=== PATIENT | male | born 1975 | race American Indian/Alaskan Native ===

== ENCOUNTER 2017-06-29 01:53 | Emergency (ER) | payer OTHER ==
[2017-06-29 02:02] VITALS: BMI 21.7
[2017-06-29 02:06] VITALS: TEMP 97.9
[2017-06-29] MEDS ORDERED: TDAP Vaccine 0.5 mL Syr IM ONE (02:07)
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
[2017-06-29 06:37] VITALS: BP 124/68; PULSE 74; RESP 17; O2SAT 97
== END 2017-06-29 06:33 | disposition home or self-care (01) ==
LOC: ED 01:53
DX: S61.210A Laceration without foreign body of right index finger without damage to nail, initial encounter (principal); X99.1XXA Assault by knife, initial encounter; Y92.410 Unspecified street and highway as the place of occurrence of the external cause; F17.210 Nicotine dependence, cigarettes, uncomplicated; Z23 Encounter for immunization

== ENCOUNTER 2017-08-26 02:02 | Emergency (ER) | payer OTHER ==
[2017-08-26 02:03] VITALS: BMI 21.7
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
[2017-08-26 03:05] LABS: BASO # 0.03 K/mm3 (0.0-2.0); BASO % 0.5 % (0.0-3.0); EOS # 0.1 (0.0-0.7); EOS % 0.8 % (1.5-5.0); GRAN # 3.25 (1.4-6.5); GRAN % 53.2 % (50.0-68.0); LYMPH # 2.2 (1.2-3.4); LYMPH % 36.3 % (22.0-35.0); MEAN CELL VOLUME 99.7 fl (80.0-105.0); MEAN CORPUSCULAR HEMOGLOBIN 32.9 pg (25.0-35.0); MEAN PLATELET VOLUME 10.3 fl (7.0-11.0); MONO # 0.6 (0.1-0.6); MONO % 9.2 % (1.0-6.0); RBC 3.95 10^6/uL (3.5-6.1); RED CELL DISTRIBUTION WIDTH 14.5 % (11.5-14.5); WHITE BLOOD COUNT 6.1 10^3/ul (4.5-11.0)
[2017-08-26 03:20] LABS: INR 0.98 (0.93-1.08); PARTIAL THROMBOPLASTIN TIME 31.1 Seconds (25.1-36.5); PROTHROMBIN TIME 11.2 SECONDS (9.4-12.5)
[2017-08-26 03:22] LABS: ALB/GLOB RATIO 1.2 (1.1-1.8); ALT/SGPT 43 U/L (7-56); AST/SGOT 55 U/L (17-59); BLOOD UREA NITROGEN 8 mg/dL (7-21); CALCIUM 9.2 mg/dL (8.4-10.5); GFR AFRICAN-AMERICAN > 60; GFR NON-AFRICAN AMERICAN > 60; LIPASE 130 U/L (23-300)
[2017-08-26 03:27] LABS: TROPONIN I < 0.01 ng/mL
[2017-08-26 03:33] LABS: CK MB% 0.9 % (2.5-3.0); CK-MB 8.2 ng/mL (0.0-3.6)
[2017-08-26 05:16] LABS: URINE BILIRUBIN NEGATIVE (NEGATIVE); URINE BLOOD NEGATIVE (NEGATIVE); URINE GLUCOSE (UA) NEGATIVE (NEGATIVE); URINE LEUKOCYTE ESTERASE NEGATIVE Leu/uL (NEGATIVE); URINE NITRATE NEGATIVE (NEGATIVE); URINE PROTEIN NEGATIVE mg/dL (<30 mg/dL); URINE UROBILINOGEN 0.2 E.U./dL (<1 E.U./dL)
[2017-08-26 05:17] LABS: URINE APPEARANCE CLEAR (CLEAR); URINE COLOR YELLOW (YELLOW)
[2017-08-26 06:36] VITALS: BP 135/83; PULSE 68; RESP 17; TEMP 98.2; O2SAT 98
--- NOTE | 2017-08-26 09:05 | RAD ---
HISTORY: cp COMPARISON: No prior. TECHNIQUE: Chest PA and lateral FINDINGS: LUNGS: No active pulmonary disease. PLEURA: No significant pleural effusion identified. No pneumothorax apparent. CARDIOVASCULAR: Normal. OSSEOUS STRUCTURES: No significant abnormalities. VISUALIZED UPPER ABDOMEN: Normal. OTHER FINDINGS: None. IMPRESSION: No active disease.
--- NOTE | 2017-08-26 16:06 | CARD ---
APPROVED REPORT EKG Measurement Heart [id number] <Conclusion> Normal sinus rhythm Normal ECG
== END 2017-08-26 06:35 | disposition home or self-care (01) ==
LOC: ED 02:02
DX: R10.9 Unspecified abdominal pain (principal); F17.210 Nicotine dependence, cigarettes, uncomplicated
CPT/HCPCS: 71046; 80053; 81003; 82550; 82553; 83615; 83690; 84484; 85025; 85610; 85730; 93005; 96374; 96375; 99285; C9113; J2405

== ENCOUNTER 2017-09-02 04:40 | Emergency (ER) | payer OTHER ==
[2017-09-02 04:41] VITALS: BMI 21.7
[2017-09-02 04:58] VITALS: TEMP 98.9
[2017-09-02] MEDS ORDERED: Albuterol-Ipratrop 3 mg / 0.5 (3 ml) UD IH STA (05:07)
--- NOTE | 2017-09-02 05:17 | ED PDOC ---
Arrival/HPI - General Chief Complaint: Flu-like Symptoms Time Seen by Provider: 09/02/17 04:41 Historian: Patient - History of Present Illness Narrative History of Present Illness (Text): 09/02/17 05:15 Pancho Martin is a 42 year old male, whose past medical history includes asthma , presents to the Emergency department with wheezing,dry cough, rhinorrhea tonight. Patient denies any diarrhea, urinary symptoms, back pain, neck pain, headache, dizziness or any other complaints. Time/Duration: Other (tonight) Symptom Onset: Gradual Symptom Course: Unchanged Activities at Onset: Light Context: Home Past Medical History - Provider Review Nursing Documentation Reviewed: Yes - Tetanus Immunization Tetanus Immunization: Unknown - Pulmonary Hx Asthma: Yes - Psychiatric Hx Depression: No Hx Substance Use: Yes - Surgical History Hx Orthopedic Surgery: Yes (rt hand) - Suicidal Assessment Feels Threatened In Home Enviroment: No Family/Social History - Physician Review Nursing Documentation Reviewed: Yes Family/Social History: Unknown Family HX Smoking Status: Heavy Smoker > 10 Cigarettes Daily Hx Alcohol Use: Yes Frequency of alcohol use: Daily Hx Substance Use: Yes Substance used: Marijuana Allergies/Home Meds Allergies/Adverse Reactions: Allergies Penicillins Allergy (Verified 09/02/17 04:53) ANAPHYLAXIS Home Medications: Home Meds Medication Instructions Recorded Confirmed Albuterol Sulfate [Proventil Hfa] 0.09 mg IH Q6 PRN 09/02/17 09/02/17 Review of Systems - Physician Review All systems were reviewed & negative as marked: Yes - Review of Systems Constitutional: Normal Eyes: Normal ENT: Rhinorrhea, Other (+flu-like symptoms) Respiratory: Wheezing. absent: SOB, Cough Cardiovascular: Normal. absent: Chest Pain, Palpitations Gastrointestinal: Normal. absent: Abdominal Pain, Diarrhea Genitourinary Male: Normal. absent: Dysuria, Frequency, Hematuria, Urinary Output Changes Musculoskeletal: Normal. absent: Back Pain, Neck Pain Skin: Normal. absent: Rash Neurological: Normal. absent: Headache, Dizziness Endocrine: Normal Hemo/Lymphatic: Normal Psychiatric: Normal Physical Exam Vital Signs Reviewed: Yes Vital Signs Temp Pulse Resp BP Pulse Ox 09/02/17 06:30 82 17 127/70 99 09/02/17 04:54 98.9 F 91 H 19 138/89 97 Temperature: Afebrile Blood Pressure: Normal Pulse: Regular Respiratory Rate: Normal Appearance: Positive for: Well-Appearing, Non-Toxic, Comfortable Pain Distress: None Mental Status: Positive for: Alert and Oriented X 3 - Systems Exam Head: Present: Atraumatic, Normocephalic Pupils: Present: PERRL Extroacular Muscles: Present: EOMI Conjunctiva: Present: Normal Ears: Present: Normal, NORMAL TM, Normal Canal. No: Erythema, TM Bulging, Fluid Mouth: Present: Moist Mucous Membranes. No: Normal Tounge Pharnyx: Present: Normal. No: ERYTHEMA, EXUDATE, Peritonsilar Swelling, Uvular Deviation, Muffled/Hoarse Voice, Strider, Soft Palate/Uvular Edema Nose (External): Present: Atraumatic Nose (Internal): Present: Rhinorrhea Neck: Present: Normal Range of Motion. No: Meningeal Signs, MIDLINE TENDERNESS , Paraspinal Tenderness Respiratory/Chest: Present: Wheezes (Slight end-expiratory wheeze). No: Respiratory Distress, Accessory Muscle Use Cardiovascular: Present: Regular Rate and Rhythm, Normal S1, S2. No: Murmurs Abdomen: Present: Normal Bowel Sounds. No: Tenderness, Distention, Peritoneal Signs Back: Present: Normal Inspection. No: CVA Tenderness, Midline Tenderness, Paraspinal Tenderness Upper Extremity: Present: Normal Inspection. No: Cyanosis, Edema Lower Extremity: Present: Normal Inspection. No: Edema Neurological: Present: GCS=15, CN II-XII Intact, Speech Normal Skin: Present: Warm, Dry, Normal Color. No: Rashes Psychiatric: Present: Alert, Oriented x 3, Normal Insight, Normal Concentration Medical Decision Making ED Course and Treatment: 09/02/17 05:13 Impression: 42 year old male presents to the Emergency department with wheezing and cough. Plan: -- Duoneb -- Rapid Flu -- Reassess and disposition Prior Visits: Notes and results from previous visits were reviewed. Patient was last seen in the emergency department on 08/26/17 for abdominal pain and chest pain. Patient was discharged. Progress Notes: 09/02/17 06:21 On re-evaluation, patient feels better. Discussed results and plan with patient who expresses understanding. All questions answered and there is agreement with the plan to discharge home with instructions. Patient stable for discharge. Return if symptoms persist or worsen. - Lab Interpretations Lab Results: Lab Results 09/02/17 05:10: Influenza Typ A,B (EIA) Negative for flu a/b I have reviewed the lab results: Yes - Medication Orders Current Medication Orders: Discontinued Medications Albuterol/Ipratropium (Duoneb 3 Mg/0.5 Mg (3 Ml) Ud) 3 ml IH ONCE STA Stop: 09/02/17 05:08 Last Admin: 09/02/17 05:15 Dose: 3 ml Azithromycin (Zithromax) 500 mg PO ONCE STA PRN Reason: Protocol Stop: 09/02/17 06:27 Last Admin: 09/02/17 07:12 Dose: 500 mg - Scribe Statement The provider has reviewed the documentation as recorded by the Raffy Joshi training under Yelitza Galeas All medical record entries made by the Raffy were at my direction and personally dictated by me. I have reviewed the chart and agree that the record accurately reflects my personal performance of the history, physical exam, medical decision making, and the department course for this patient. I have also personally directed, reviewed, and agree with the discharge instructions and disposition. Disposition/Present on Arrival - Present on Arrival Any Indicators Present on Arrival: No History of DVT/PE: No History of Uncontrolled Diabetes: No Urinary Catheter: No History of Decub. Ulcer: No History Surgical Site Infection Following: None - Disposition Have Diagnosis and Disposition been Completed?: Yes Diagnosis: Bronchitis Disposition: HOME/ ROUTINE Disposition Time: 06:23 Patient Plan: Discharge Condition: STABLE Discharge Instructions (ExitCare): Asthma (ED), Acute Bronchitis (ED) Additional Instructions: Take meds as prescribed/follow up with your doctor this week Prescriptions: Albuterol HFA [Ventolin HFA 90 mcg/actuation (8 g)] 2 puff IH [id number] PRN #1 puff PRN Reason: Wheezing Azithromycin [Zithromax] 250 mg PO DAILY #4 tab Referrals: Klever Das MD [Primary Care Provider] - Follow up with primary Forms: [employer] (Yakut)
[2017-09-02 07:34] VITALS: BP 127/70; PULSE 82; RESP 17; O2SAT 99
== END 2017-09-02 07:25 | disposition home or self-care (01) ==
LOC: ED 04:40
DX: J20.9 Acute bronchitis, unspecified (principal); F17.210 Nicotine dependence, cigarettes, uncomplicated

== ENCOUNTER 2017-11-01 22:47 | Emergency (ER) | payer OTHER ==
[2017-11-01 22:48] VITALS: BMI 21.7
--- NOTE | 2017-11-01 23:07 | ED PDOC ---
Arrival/HPI - General Chief Complaint: Alcohol Ingestion Time Seen by Provider: 11/01/17 22:54 Historian: Patient - History of Present Illness Narrative History of Present Illness (Text): 11/01/17 23:04 42yo male present to ED complaining of headache s/p head injury. States he slipped, fell and hit the back pn his head on the ground. Report one episode of vomiting s/p. Denies LOC, focal weakness, dizziness, visual changes, any other complaint. Past Medical History - Provider Review Nursing Documentation Reviewed: Yes - Tetanus Immunization Tetanus Immunization: Unknown - Pulmonary Hx Asthma: Yes - Psychiatric Hx Depression: No Hx Substance Use: Yes - Surgical History Hx Orthopedic Surgery: Yes (rt hand) - Suicidal Assessment Feels Threatened In Home Enviroment: No Family/Social History - Physician Review Nursing Documentation Reviewed: Yes Family/Social History: Unknown Family HX Smoking Status: Heavy Smoker > 10 Cigarettes Daily Hx Alcohol Use: Yes Hx Substance Use: Yes Substance used: Marijuana Allergies/Home Meds Allergies/Adverse Reactions: Allergies Penicillins Allergy (Verified 11/01/17 22:50) ANAPHYLAXIS Home Medications: Home Meds Medication Instructions Recorded Confirmed Albuterol Sulfate [Proventil Hfa] 0.09 mg IH Q6 PRN 09/02/17 11/01/17 Review of Systems - Physician Review All systems were reviewed & negative as marked: Yes - Review of Systems Constitutional: Normal Eyes: Normal ENT: Normal Respiratory: Normal Cardiovascular: Normal Gastrointestinal: Nausea, Vomiting. absent: Abdominal Pain, Constipation, Diarrhea, Hematochezia, Hematemesis Genitourinary Male: Normal Musculoskeletal: Normal Skin: Normal Neurological: Headache. absent: Dizziness, Focal Weakness Endocrine: Normal Hemo/Lymphatic: Normal Psychiatric: Normal Physical Exam Vital Signs Reviewed: Yes Vital Signs Temp Pulse Resp BP Pulse Ox 11/01/17 23:08 97.5 F L 82 18 136/85 99 Temperature: Afebrile Blood Pressure: Normal Pulse: Regular Respiratory Rate: Normal Appearance: Positive for: Well-Appearing, Non-Toxic, Comfortable Pain Distress: None Mental Status: Positive for: Alert and Oriented X 3 - Systems Exam Head: Present: Normocephalic, Tenderness (Right sided occipital scalp). No: Atraumatic (Traumatic) Pupils: Present: PERRL Extroacular Muscles: Present: EOMI Conjunctiva: Present: Normal Mouth: Present: Moist Mucous Membranes Neck: Present: Normal Range of Motion Respiratory/Chest: Present: Clear to Auscultation, Good Air Exchange. No: Respiratory Distress, Accessory Muscle Use Cardiovascular: Present: Regular Rate and Rhythm, Normal S1, S2. No: Murmurs Abdomen: No: Tenderness, Distention, Peritoneal Signs Back: Present: Normal Inspection Upper Extremity: Present: Normal Inspection. No: Cyanosis, Edema Lower Extremity: Present: Normal Inspection. No: Edema Neurological: Present: GCS=15, CN II-XII Intact, Speech Normal, Motor Func Grossly Intact, Normal Sensory Function, Normal Cerebellar Funct, Norm Deep Tendon Reflexes, Gait Normal, Memory Normal, Normal 2Pt Descrimination Skin: Present: Warm, Dry, Normal Color. No: Rashes Psychiatric: Present: Alert, Oriented x 3, Normal Insight, Normal Concentration Medical Decision Making ED Course and Treatment: 11/02/17 00:21 PT in ED for stated history. He was AAO x3. Neurologically intact. His headache was controlled in ED with Tylenol. Head CT IMPRESSION: No acute intracranial findings. Nasal bone fracture, age-indeterminate Result was DW the pt. He was DC home with zofran. Advised to take Tylen ol every 6hrs as needed for headache - RAD Interpretation Radiology Orders: 11/01/17 23:01 HEAD W/O CONTRAST [CT] Stat - Medication Orders Current Medication Orders: Discontinued Medications Acetaminophen (Tylenol 325mg Tab) 975 mg PO STAT STA Stop: 11/01/17 23:04 Last Admin: 11/01/17 23:51 Dose: 975 mg MAR Pain/Vitals Document 11/01/17 23:51 RICH (Rec: 11/01/17 23:52 RICH [id number]) Pain Reassessment Is This A Pain ReAssessment? No Ondansetron HCl (Zofran Odt) 4 mg PO STAT STA Stop: 11/01/17 23:03 Last Admin: 11/01/17 23:53 Dose: 4 mg Disposition/Present on Arrival - Present on Arrival Any Indicators Present on Arrival: No History of DVT/PE: No History of Uncontrolled Diabetes: No Urinary Catheter: No History of Decub. Ulcer: No History Surgical Site Infection Following: None - Disposition Have Diagnosis and Disposition been Completed?: Yes Diagnosis: Head injury Disposition: HOME/ ROUTINE Disposition Time: 00:15 Patient Plan: Discharge Condition: STABLE Discharge Instructions (ExitCare): Minor Head Injury (DC) Additional Instructions: Follow up with your Doctor Return to ED for any new symptoms Prescriptions: Ondansetron ODT [Zofran ODT] 4 mg PO Q6 #6 odt Referrals: [facility] at [facility] [Outside] - Follow up with primary Forms: Tk[employer] (Danish)
[2017-11-01 23:09] VITALS: RESP 18; TEMP 97.5
--- NOTE | 2017-11-02 00:08 | CT ---
EXAM: CT Head Without Intravenous Contrast CLINICAL HISTORY: 42 years old, male; Injury or trauma; Fall; Initial encounter; Concussion / head injury TECHNIQUE: Axial computed tomography images of the head/brain without intravenous contrast. All CT scans at this facility use one or more dose reduction techniques, viz.: automated exposure control; ma/kV adjustment per patient size (including targeted exams where dose is matched to indication; i.e. head); or iterative reconstruction technique. Coronal and sagittal reformatted images were created and reviewed. COMPARISON: No relevant prior studies available. FINDINGS: Brain: Unremarkable. No hemorrhage. No significant white matter disease. No edema. Ventricles: Unremarkable. No ventriculomegaly. Bones/joints: Bilateral nasal bone fractures, age indeterminate. Soft tissues: Frontal scalp and facial soft tissue swelling. Sinuses: Unremarkable as visualized. No acute sinusitis. Mastoid air cells: Unremarkable as visualized. No mastoid effusion. IMPRESSION: No acute intracranial findings. Nasal bone fracture, age-indeterminate.
[2017-11-02 06:09] VITALS: BP 132/78; PULSE 74; O2SAT 98
[2017-11-02] MEDS ORDERED: Albuterol-Ipratrop 3 mg / 0.5 (3 ml) UD ONE (06:24)
[2017-11-02] MEDS ORDERED: Albuterol-Ipratrop 3 mg / 0.5 (3 ml) UD IH STA (06:46)
== END 2017-11-02 06:40 | disposition home or self-care (01) ==
LOC: ED 22:47
DX: S09.90XA Unspecified injury of head, initial encounter (principal); W01.0XXA Fall on same level from slipping, tripping and stumbling without subsequent striking against object, initial encounter; F17.210 Nicotine dependence, cigarettes, uncomplicated

== ENCOUNTER 2017-12-27 04:14 | Emergency (ER) | payer OTHER ==
[2017-12-27 04:15] VITALS: BMI 21.7
[2017-12-27 04:28] VITALS: RESP 18; TEMP 98.3
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
[2017-12-27 07:11] VITALS: BP 134/76; PULSE 18; O2SAT 99
== END 2017-12-27 06:36 | disposition home or self-care (01) ==
LOC: ED 04:14
DX: K08.89 Other specified disorders of teeth and supporting structures (principal); F17.210 Nicotine dependence, cigarettes, uncomplicated

== ENCOUNTER 2017-12-27 06:41 | Emergency (ER) | payer OTHER ==
[2017-12-27 06:41] VITALS: BMI 21.7
[2017-12-27 07:15] VITALS: BP 115/70; RESP 18; O2SAT 99
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
[2017-12-27 08:10] VITALS: PULSE 72; TEMP 98.6
== END 2017-12-27 08:07 | disposition home or self-care (01) ==
LOC: ED 06:41
DX: K02.9 Dental caries, unspecified (principal); F17.210 Nicotine dependence, cigarettes, uncomplicated